=== PATIENT | female | born 1955 | race Caucasian/White ===

== ENCOUNTER 2016-10-13 16:50 | Emergency (ER) | payer OTHER, BC ==
[2016-10-13] MEDS ORDERED: LIDOCAINE HCL 1% MPF SOL ONE (17:05)
[2016-10-13 17:17] VITALS: BP 151/92; PULSE 85; RESP 18; TEMP 97.7; O2SAT 99
[2016-10-13] MEDS ORDERED: LIDOCAINE HCL 1% MDV SOL SC ONE (17:17)
[2016-10-13] MEDS ORDERED: BACITRACIN 500 U/GM OIN TOP ONE ×2 (17:17→17:23)
== END 2016-10-13 17:30 | disposition home or self-care (01) | DRG 605 ==
LOC: ED 16:50
DX: S61.215A Laceration without foreign body of left ring finger without damage to nail, initial encounter (principal); W26.0XXA Contact with knife, initial encounter
CPT/HCPCS: 12001; 99284; A6402; J2001